=== PATIENT | male | born 1950 | race Hispanic/Latino ===

== ENCOUNTER 2021-05-24 17:22 | Inpatient (IN) | payer MEDICARE ==
[~2021-05-24] VITALS: Ht 177.8 cm; Wt 109.4 kg
[2021-05-24] MEDS ORDERED: ACETAMINOPHEN WITH CODEINE 1 TAB TAB PO ONE (18:30)
[2021-05-24] MEDS ORDERED: DEXAMETHASONE 4 MG TAB PO SCH (18:30)
[2021-05-24 18:38] LABS: ABG BASE EXCESS 0.2 mmol/L (-2.0-3.0); ABG HCO3 22.1 mmol/L (21.0-28.0); ABG PCO2 29 mmHg (35-48)
[2021-05-24 19:17] LABS: BASOPHILS % (AUTO) 0.1 % (0.0-5.0); EOSINOPHILS % (AUTO) 0.3 % (0.0-8.0); HEMATOCRIT 40.6 % (42-54); LYMPHOCYTES % (AUTO) 4.5 % (21.0-51.0); MEAN CORPUSCULAR HEMOGLOBIN 27.3 pg (27.0-33.0); MEAN CORPUSCULAR VOLUME 82.7 fL (79-99); MONOCYTES % (AUTO) 2.3 % (3.0-13.0); NEUTROPHILS % (AUTO) 92.1 % (40.0-77.0); PLATELET COUNT (AUTO) 308 K/uL (130-400); RED BLOOD CELL COUNT(AUTO) 4.91 MIL/uL (4.50-6.20); WHITE BLOOD COUNT (AUTO) 9.7 K/uL (4.8-10.8)
[2021-05-24] MEDS: ALBUTEROL INHALER 90MCG/INH IH PRN (19:22)
[2021-05-24 19:32] LABS: CREATININE 1.1 mg/dL (0.5-1.5); POTASSIUM 3.9 mmol/L (3.5-5.1)
[2021-05-24 19:35] LABS: INR 1.16 (0.85-1.15); PROTHROMBIN TIME 12.5 SEC (9.6-11.6)
[2021-05-24 19:36] LABS: PARTIAL THROMBOPLASTIN TIME 27.4 SEC (26.3-35.5)
[2021-05-24 19:38] LABS: ALBUMIN 2.3 g/dL (3.5-5.0); BILIRUBIN,TOTAL 0.7 mg/dL (0.2-1.0); TOTAL PROTEIN, SERUM 6.6 g/dL (6.0-8.3)
[2021-05-24 19:59] LABS: APPEARANCE,URINE Clear (CLEAR); BILIRUBIN,URINE Small (NEGATIVE); COLOR,URINE Dark Yellow (YELLOW); GLUCOSE, URINE (UA) Negative (NEGATIVE); KETONES,URINE Trace mg/dL (NEGATIVE); LEUKOCYTE ESTERASE ,URINE Trace (NEGATIVE); NITRATE,URINE Negative (NEGATIVE); OCCULT BLOOD,URINE Negative (NEGATIVE); PH,URINE 5.5 (5.0-8.0); PROTEIN,URINE POS 2+ mg/dL (NEGATIVE)
[2021-05-24 20:17] LABS: AMORPHOUS SEDIMENT,UR Few /LPF (None Seen); BACTERIA,URINE Few /HPF (None Seen); MUCUS,URINE Few LPF (None Seen); RBC,URINE None Seen /HPF (0-1); SQUAMOUS EPITHELIAL CELL,UR None Seen /HPF (0-2); WBC,URINE 0-1 /HPF (0-1)
[2021-05-24] MEDS ORDERED: HYDRALAZINE 20MG/ML VIAL IV PRN (20:30)
[2021-05-24] MEDS ORDERED: ZOLPIDEM TARTRATE 5 MG TAB PO PRN (20:30)
[2021-05-24] MEDS ORDERED: LACTULOSE 20 GM/30 ML UDCUP PO PRN (20:30)
[2021-05-24] MEDS ORDERED: HYDROCODONE/ACETAMINOPHEN 5/325 MG TAB PO PRN ×2 (20:30)
[2021-05-24] MEDS ORDERED: AZITHROMYCIN 250 MG TABLET PO ONE ×2 (20:30→22:18)
[2021-05-24] MEDS ORDERED: CEFTRIAXONE 1G VIAL IVP ONE (20:30)
[2021-05-24] MEDS ORDERED: DIPHENHYDRAMINE HCL 25 MG CAPSULE PO PRN (20:30)
[2021-05-24] MEDS ORDERED: ONDANSETRON 4MG INJ IV PRN (20:30)
[2021-05-24] MEDS ORDERED: ACETAMINOPHEN 325 MG TAB PO PRN (20:30)
[2021-05-24] MEDS ORDERED: ALBUTEROL 0.083% 2.5 MG/3 ML INH IH PRN (20:30)
[2021-05-24] MEDS ORDERED: NITROGLYCERIN 0.4 MG SL TAB SL PRN (20:30)
[2021-05-24] MEDS ORDERED: IOHEXOL 350 MG/ML 100ML INFUS..BTL IV ONE (22:07)
[2021-05-24] MEDS ORDERED: CEFTRIAXONE 1G VIAL ONE (22:18)
[2021-05-24] MEDS: FAMOTIDINE 20MG VIAL IV SCH (22:57)
[2021-05-24] MEDS ORDERED: ERGOCALCIFEROL (VITAMIN D2) 50,000 UNIT CAPSULE PO ONE (23:30)
[2021-05-25] MEDS ORDERED: ERGOCALCIFEROL (VITAMIN D2) 50,000 UNIT CAPSULE ONE (00:38)
[2021-05-25] MEDS: GUAIFENESIN-DM 200/20 MG 10 ML PO PRN ×2 (00:56→19:23)
[2021-05-25] MEDS: ALBUTEROL INHALER 90MCG/INH IH PRN (01:05)
[2021-05-25] MEDS ORDERED: CEFTRIAXONE 1G VIAL IVP SCH (09:00)
[2021-05-25] MEDS ORDERED: ENOXAPARIN SODIUM 40 MG/0.4 ML SYRINGE SQ SCH (09:00)
[2021-05-25] MEDS ORDERED: ENOXAPARIN SODIUM 0.5 MG/KG EACH SQ SCH (09:00)
[2021-05-25] MEDS ORDERED: 0.9%NACL 1000ML 1,000 ML IV ONE (09:25)
[2021-05-25] MEDS: AZITHROMYCIN 500MG+NS 250ML IVPB SCH (09:44)
[2021-05-25] MEDS: FAMOTIDINE 20MG VIAL IV SCH ×2 (09:44→21:00)
[2021-05-25] MEDS: ASCORBIC ACID 500 MG TAB PO SCH (09:44)
[2021-05-25] MEDS: ACETYLCYSTEINE 600 MG CAPSULE PO SCH ×2 (09:44→21:00)
[2021-05-25] MEDS: ENOXAPARIN SODIUM 60 MG/0.6 ML SQ SCH (09:44)
[2021-05-25] MEDS: ZINC SULFATE 220 CAPSULE PO SCH (09:44)
[2021-05-25 10:46] LABS: HEMOGLOBIN A1C 6.3 % (4.0-6.0)
[2021-05-25 11:00] LABS: THYROID STIMULATING HORMONE 0.3 uIU/mL (0.36-3.74)
[2021-05-25 11:08] LABS: CRP QUANTITATIVE 280.1 mg/L (0.00-9.0)
[2021-05-25] MEDS ORDERED: LOSA50TA64 PO (11:41)
[2021-05-25] MEDS ORDERED: BENZ200C53 PO (11:41)
[2021-05-25] MEDS ORDERED: VERA180T60 PO (11:41)
[2021-05-25] MEDS ORDERED: VANCOMYCIN PROTOCOL PER PHARMACY IV SCH (13:00)
[2021-05-25] MEDS ORDERED: VANCOMYCIN 1.75GM/250ML NS IV ONE ×2 (15:00)
[2021-05-25] MEDS: CEFEPIME HCL 2 GM VIAL IVP SCH (16:00)
[2021-05-25] MEDS: INSULIN HUMULIN R 100 UNIT/ML 3ML SQ SCH (19:30)
[2021-05-25] MEDS ORDERED: 0.9%NACL 100ML 100 ML ONE (22:03)
[2021-05-25] MEDS ORDERED: PHARMACY COMMUNICATION MISC SCH (22:30)
[2021-05-25] MEDS: SOLU-MEDROL 125MG VIAL IVP SCH (22:30)
[2021-05-26] MEDS: CEFEPIME HCL 2 GM VIAL IVP SCH ×2 (01:06→13:17)
[2021-05-26] MEDS: GUAIFENESIN-DM 200/20 MG 10 ML PO PRN ×2 (03:00→23:24)
[2021-05-26] MEDS ORDERED: VANCOMYCIN KIT 1 GM/250 ML IV.KIT IV SCH (06:00)
[2021-05-26 06:49] VITALS: BP 136/90
[2021-05-26] MEDS: INSULIN HUMULIN R 100 UNIT/ML 3ML SQ SCH ×5 (07:30→20:57)
[2021-05-26 07:37] LABS: HEMATOCRIT 39.8 % (42-54); MEAN CORPUSCULAR HEMOGLOBIN 27.1 pg (27.0-33.0); MEAN CORPUSCULAR HGB CONC 32.2 g/dL (32.0-36.0); MEAN CORPUSCULAR VOLUME 84.3 fL (79-99); RED BLOOD CELL COUNT(AUTO) 4.72 MIL/uL (4.50-6.20); RED CELL DISTRIBUTION WIDTH 14.4 % (11.0-15.5); WHITE BLOOD COUNT (AUTO) 11.9 K/uL (4.8-10.8)
[2021-05-26 07:55] LABS: ALBUMIN 2.1 g/dL (3.5-5.0); BILIRUBIN,TOTAL 0.5 mg/dL (0.2-1.0); CREATININE 0.9 mg/dL (0.5-1.5); POTASSIUM 4.1 mmol/L (3.5-5.1); TOTAL PROTEIN, SERUM 6.3 g/dL (6.0-8.3)
[2021-05-26] MEDS: SOLU-MEDROL 125MG VIAL IVP SCH ×3 (08:01→22:33)
[2021-05-26] MEDS: AZITHROMYCIN 500MG+NS 250ML IVPB SCH (08:02)
[2021-05-26] MEDS: ACETYLCYSTEINE 600 MG CAPSULE PO SCH ×2 (08:02→20:56)
[2021-05-26] MEDS: ENOXAPARIN SODIUM 60 MG/0.6 ML SQ SCH (08:02)
[2021-05-26] MEDS: FAMOTIDINE 20MG VIAL IV SCH ×2 (08:03→20:55)
[2021-05-26] MEDS: ZINC SULFATE 220 CAPSULE PO SCH (08:03)
[2021-05-26] MEDS: ASCORBIC ACID 500 MG TAB PO SCH (08:03)
[2021-05-26] MEDS: VERAPAMIL HCL 180 MG PO SCH (08:42)
[2021-05-26 11:25] VITALS: BP 109/68
[2021-05-26] MEDS ORDERED: ALBUTEROL INHALER 90MCG/INH IH PRN (13:30)
[2021-05-26] MEDS ORDERED: PHARMACY COMMUNICATION MISC SCH (14:00)
[2021-05-26] MEDS ORDERED: COMPOUND IV REFRIGERATED 1 EACH IVSOLN MISC PRN (15:00)
[2021-05-26] MEDS ORDERED: REMDESIVIR (EUA) 520 200 MG in 0.9% NACL 250ML 250 ML IV ONE (15:00)
[2021-05-26 15:10] VITALS: BP 112/72
[2021-05-26 19:55] VITALS: BP 120/73
[2021-05-26 23:43] VITALS: BP 145/94
[2021-05-27] MEDS: CEFEPIME HCL 2 GM VIAL IVP SCH ×2 (01:38→13:42)
[2021-05-27 04:00] VITALS: BP 144/78
[2021-05-27] MEDS: REMDESIVIR LABS MISC SCH (04:37)
[2021-05-27] MEDS: BENZONATATE 100 MG CAPSULE PO PRN (05:29)
[2021-05-27 06:01] LABS: BASOPHILS % (AUTO) 0.1 % (0.0-5.0); HEMATOCRIT 37.9 % (42-54); LYMPHOCYTES % (AUTO) 3.3 % (21.0-51.0); MEAN CORPUSCULAR HEMOGLOBIN 27.1 pg (27.0-33.0); MEAN CORPUSCULAR HGB CONC 31.9 g/dL (32.0-36.0); MONOCYTES % (AUTO) 1.5 % (3.0-13.0); NEUTROPHILS % (AUTO) 94.3 % (40.0-77.0); PLATELET COUNT (AUTO) 325 K/uL (130-400); RED BLOOD CELL COUNT(AUTO) 4.46 MIL/uL (4.50-6.20); RED CELL DISTRIBUTION WIDTH 14.5 % (11.0-15.5); WHITE BLOOD COUNT (AUTO) 11.8 K/uL (4.8-10.8)
[2021-05-27 06:18] LABS: ALBUMIN 2.1 g/dL (3.5-5.0); BILIRUBIN,TOTAL 0.4 mg/dL (0.2-1.0); CREATININE 0.9 mg/dL (0.5-1.5); CRP QUANTITATIVE 118.5 mg/L (0.00-9.0); TOTAL PROTEIN, SERUM 6.1 g/dL (6.0-8.3)
[2021-05-27] MEDS: SOLU-MEDROL 125MG VIAL IVP SCH ×3 (06:27→23:01)
[2021-05-27] MEDS: INSULIN HUMULIN R 100 UNIT/ML 3ML SQ SCH ×4 (06:46→21:00)
[2021-05-27 08:00] VITALS: BP 141/84
[2021-05-27] MEDS: FAMOTIDINE 20MG VIAL IV SCH ×2 (08:53→21:05)
[2021-05-27] MEDS: ASCORBIC ACID 500 MG TAB PO SCH (08:53)
[2021-05-27] MEDS: ACETYLCYSTEINE 600 MG CAPSULE PO SCH ×2 (08:53→21:05)
[2021-05-27] MEDS: AZITHROMYCIN 500MG+NS 250ML IVPB SCH (08:53)
[2021-05-27] MEDS: ZINC SULFATE 220 CAPSULE PO SCH (08:53)
[2021-05-27] MEDS: ENOXAPARIN SODIUM 60 MG/0.6 ML SQ SCH (08:54)
[2021-05-27] MEDS: VERAPAMIL HCL 180 MG PO SCH (08:58)
[2021-05-27 12:00] VITALS: BP 138/90
[2021-05-27] MEDS ORDERED: REMDESIVIR (EUA) 520 100 MG in 0.9% NACL 250ML 250 ML IV SCH (15:00)
[2021-05-27] MEDS: GUAIFENESIN-DM 200/20 MG 10 ML PO PRN ×2 (15:37→21:05)
[2021-05-27 16:00] VITALS: BP 145/93
[2021-05-27 20:00] VITALS: BP 144/83
[2021-05-28] VITALS: BP 146/88
[2021-05-28] MEDS: CEFEPIME HCL 2 GM VIAL IVP SCH ×2 (00:02→13:48)
[2021-05-28] MEDS: BENZONATATE 100 MG CAPSULE PO PRN (00:30)
[2021-05-28 04:00] VITALS: BP 146/81
[2021-05-28] MEDS: GUAIFENESIN-DM 200/20 MG 10 ML PO PRN ×2 (04:58→13:48)
[2021-05-28] MEDS: REMDESIVIR LABS MISC SCH (05:12)
[2021-05-28] MEDS: SOLU-MEDROL 125MG VIAL IVP SCH ×3 (06:48→20:47)
[2021-05-28] MEDS: INSULIN HUMULIN R 100 UNIT/ML 3ML SQ SCH ×4 (07:27→21:00)
[2021-05-28 08:04] VITALS: BP 144/84
[2021-05-28] MEDS: FAMOTIDINE 20MG VIAL IV SCH ×2 (08:23→20:47)
[2021-05-28] MEDS: ENOXAPARIN SODIUM 60 MG/0.6 ML SQ SCH (08:24)
[2021-05-28] MEDS: ACETYLCYSTEINE 600 MG CAPSULE PO SCH ×2 (08:24→20:48)
[2021-05-28] MEDS: ASCORBIC ACID 500 MG TAB PO SCH (08:24)
[2021-05-28] MEDS: ZINC SULFATE 220 CAPSULE PO SCH (08:24)
[2021-05-28] MEDS: AZITHROMYCIN 500MG+NS 250ML IVPB SCH (08:25)
[2021-05-28] MEDS: VERAPAMIL HCL 180 MG PO SCH (08:25)
[2021-05-28 11:42] VITALS: BP 128/88
[2021-05-28 15:46] VITALS: BP 146/62
[2021-05-28 20:00] VITALS: BP 146/78
[2021-05-29] VITALS: BP 158/88
[2021-05-29] MEDS: CEFEPIME HCL 2 GM VIAL IVP SCH ×3 (01:26→23:31)
[2021-05-29 04:00] VITALS: BP 141/77
[2021-05-29 04:27] LABS: BASOPHILS % (AUTO) 0.1 % (0.0-5.0); HEMATOCRIT 40.6 % (42-54); LYMPHOCYTES % (AUTO) 3.2 % (21.0-51.0); MEAN CORPUSCULAR HEMOGLOBIN 26.2 pg (27.0-33.0); MEAN CORPUSCULAR VOLUME 84.4 fL (79-99); MONOCYTES % (AUTO) 1.4 % (3.0-13.0); NEUTROPHILS % (AUTO) 94.4 % (40.0-77.0); PLATELET COUNT (AUTO) 348 K/uL (130-400); RED BLOOD CELL COUNT(AUTO) 4.81 MIL/uL (4.50-6.20); RED CELL DISTRIBUTION WIDTH 14.4 % (11.0-15.5); WHITE BLOOD COUNT (AUTO) 12.3 K/uL (4.8-10.8)
[2021-05-29 04:43] LABS: ALBUMIN 2.3 g/dL (3.5-5.0); BILIRUBIN,TOTAL 0.5 mg/dL (0.2-1.0); CREATININE 0.9 mg/dL (0.5-1.5); CRP QUANTITATIVE 53.4 mg/L (0.00-9.0); POTASSIUM 4.1 mmol/L (3.5-5.1)
[2021-05-29] MEDS: REMDESIVIR LABS MISC SCH (06:07)
[2021-05-29] MEDS: SOLU-MEDROL 125MG VIAL IVP SCH ×3 (06:10→23:31)
[2021-05-29 06:23] LABS: ERYTHROCYTE SEDIMENTATION RATE 65 MM/HR (0-20)
[2021-05-29] MEDS: INSULIN HUMULIN R 100 UNIT/ML 3ML SQ SCH ×4 (06:43→21:00)
[2021-05-29 08:00] VITALS: BP 148/94
[2021-05-29] MEDS: VERAPAMIL HCL 180 MG PO SCH (08:00)
[2021-05-29] MEDS: AZITHROMYCIN 500MG+NS 250ML IVPB SCH (08:07)
[2021-05-29] MEDS: FAMOTIDINE 20MG VIAL IV SCH ×2 (08:07→20:20)
[2021-05-29] MEDS: ZINC SULFATE 220 CAPSULE PO SCH (08:08)
[2021-05-29] MEDS: ENOXAPARIN SODIUM 60 MG/0.6 ML SQ SCH ×3 (08:08→20:22)
[2021-05-29] MEDS: ACETYLCYSTEINE 600 MG CAPSULE PO SCH ×2 (08:08→20:21)
[2021-05-29] MEDS: ASCORBIC ACID 500 MG TAB PO SCH (08:08)
[2021-05-29] MEDS ORDERED: PHARMACY COMMUNICATION MISC SCH (08:30)
[2021-05-29] MEDS ORDERED: LABETALOL 20MG VIAL IV PRN (08:30)
[2021-05-29] MEDS: LOSARTAN 25 MG TABLET PO SCH (09:20)
[2021-05-29] MEDS: BISACODYL 5 MG TABLET.DR PO SCH ×2 (09:20→20:21)
[2021-05-29 12:00] VITALS: BP 136/85
[2021-05-29] MEDS: BARICITINIB (EUA) 2 MG TABLET PO SCH (13:23)
[2021-05-29 17:27] VITALS: BP 133/73
[2021-05-29 20:00] VITALS: BP 134/76
[2021-05-30] VITALS: BP 142/84
[2021-05-30 04:00] VITALS: BP 142/80
[2021-05-30 04:12] LABS: BASOPHILS % (AUTO) 0.2 % (0.0-5.0); HEMATOCRIT 42.5 % (42-54); LYMPHOCYTES % (AUTO) 4.3 % (21.0-51.0); MEAN CORPUSCULAR HEMOGLOBIN 27.4 pg (27.0-33.0); MEAN CORPUSCULAR HGB CONC 31.5 g/dL (32.0-36.0); MEAN CORPUSCULAR VOLUME 86.9 fL (79-99); MONOCYTES % (AUTO) 1.9 % (3.0-13.0); NEUTROPHILS % (AUTO) 92.8 % (40.0-77.0); PLATELET COUNT (AUTO) 365 K/uL (130-400); RED BLOOD CELL COUNT(AUTO) 4.89 MIL/uL (4.50-6.20); RED CELL DISTRIBUTION WIDTH 14.3 % (11.0-15.5)
[2021-05-30 04:32] LABS: ALBUMIN 2.4 g/dL (3.5-5.0); BILIRUBIN,TOTAL 0.5 mg/dL (0.2-1.0); CREATININE 0.8 mg/dL (0.5-1.5); CRP QUANTITATIVE 34.4 mg/L (0.00-9.0); POTASSIUM 4.2 mmol/L (3.5-5.1); TOTAL PROTEIN, SERUM 6.5 g/dL (6.0-8.3)
[2021-05-30 06:05] LABS: ERYTHROCYTE SEDIMENTATION RATE 25 MM/HR (0-20)
[2021-05-30] MEDS: REMDESIVIR LABS MISC SCH (06:27)
[2021-05-30] MEDS: SOLU-MEDROL 125MG VIAL IVP SCH ×3 (06:38→20:37)
[2021-05-30] MEDS: INSULIN HUMULIN R 100 UNIT/ML 3ML SQ SCH ×4 (07:30→20:42)
[2021-05-30 08:00] VITALS: BP 136/95
[2021-05-30] MEDS: AZITHROMYCIN 500MG+NS 250ML IVPB SCH (08:56)
[2021-05-30] MEDS: ACETYLCYSTEINE 600 MG CAPSULE PO SCH ×2 (08:57→20:39)
[2021-05-30] MEDS: ENOXAPARIN SODIUM 60 MG/0.6 ML SQ SCH ×2 (08:57→20:38)
[2021-05-30] MEDS: LOSARTAN 25 MG TABLET PO SCH (08:57)
[2021-05-30] MEDS: ZINC SULFATE 220 CAPSULE PO SCH (08:57)
[2021-05-30] MEDS: BISACODYL 5 MG TABLET.DR PO SCH ×2 (08:57→20:39)
[2021-05-30] MEDS: FAMOTIDINE 20MG VIAL IV SCH (08:58)
[2021-05-30] MEDS: ASCORBIC ACID 500 MG TAB PO SCH (08:58)
[2021-05-30] MEDS: VERAPAMIL HCL 180 MG PO SCH (09:00)
[2021-05-30] MEDS ORDERED: FAMOTIDINE 20MG TAB PO SCH (09:30)
[2021-05-30] MEDS: BARICITINIB (EUA) 2 MG TABLET PO SCH (09:48)
[2021-05-30] MEDS: CEFEPIME HCL 2 GM VIAL IVP SCH (12:07)
[2021-05-30 12:13] VITALS: BP 112/61
[2021-05-30 16:00] VITALS: BP 142/86
[2021-05-30 20:00] VITALS: BP 142/84
[2021-05-30] MEDS: FAMOTIDINE 20MG TAB PO SCH (20:38)
[2021-05-31 00:11] VITALS: BP 136/89
[2021-05-31] MEDS: CEFEPIME HCL 2 GM VIAL IVP SCH ×2 (00:34→13:13)
[2021-05-31 03:48] LABS: BASOPHILS % (AUTO) 0.1 % (0.0-5.0); HEMATOCRIT 39.5 % (42-54); LYMPHOCYTES % (AUTO) 2.8 % (21.0-51.0); MEAN CORPUSCULAR HEMOGLOBIN 26.5 pg (27.0-33.0); MEAN CORPUSCULAR HGB CONC 31.1 g/dL (32.0-36.0); MEAN CORPUSCULAR VOLUME 85.1 fL (79-99); MONOCYTES % (AUTO) 1.4 % (3.0-13.0); NEUTROPHILS % (AUTO) 94.9 % (40.0-77.0); PLATELET COUNT (AUTO) 300 K/uL (130-400); RED BLOOD CELL COUNT(AUTO) 4.64 MIL/uL (4.50-6.20); RED CELL DISTRIBUTION WIDTH 14.2 % (11.0-15.5); WHITE BLOOD COUNT (AUTO) 10.7 K/uL (4.8-10.8)
[2021-05-31 03:58] LABS: ALBUMIN 2.1 g/dL (3.5-5.0); BILIRUBIN,TOTAL 0.5 mg/dL (0.2-1.0); CREATININE 0.9 mg/dL (0.5-1.5); CRP QUANTITATIVE 21.7 mg/L (0.00-9.0); POTASSIUM 4.2 mmol/L (3.5-5.1); TOTAL PROTEIN, SERUM 5.4 g/dL (6.0-8.3)
[2021-05-31 04:34] VITALS: BP 141/88
[2021-05-31] MEDS: SOLU-MEDROL 125MG VIAL IVP SCH ×3 (06:33→21:20)
[2021-05-31] MEDS: INSULIN HUMULIN R 100 UNIT/ML 3ML SQ SCH ×4 (06:33→21:08)
[2021-05-31] MEDS: ENOXAPARIN SODIUM 60 MG/0.6 ML SQ SCH ×2 (07:47→21:06)
[2021-05-31] MEDS: ZINC SULFATE 220 CAPSULE PO SCH (07:47)
[2021-05-31] MEDS: ACETYLCYSTEINE 600 MG CAPSULE PO SCH ×2 (07:48→21:05)
[2021-05-31] MEDS: BISACODYL 5 MG TABLET.DR PO SCH ×2 (07:48→19:18)
[2021-05-31] MEDS: ASCORBIC ACID 500 MG TAB PO SCH (07:48)
[2021-05-31] MEDS: LOSARTAN 25 MG TABLET PO SCH (07:48)
[2021-05-31] MEDS: FAMOTIDINE 20MG TAB PO SCH ×2 (07:48→21:05)
[2021-05-31] MEDS: VERAPAMIL HCL 180 MG PO SCH (07:49)
[2021-05-31] MEDS: BARICITINIB (EUA) 2 MG TABLET PO SCH (07:49)
[2021-05-31 08:08] VITALS: BP 139/94
[2021-05-31 12:00] VITALS: BP 133/85
[2021-05-31 15:57] VITALS: BP 137/87
[2021-05-31 19:29] VITALS: BP 114/85
[2021-06-01] VITALS (7 sets, daily range): BP systolic 114–164; BP diastolic 77–102
[2021-06-01] MEDS: CEFEPIME HCL 2 GM VIAL IVP SCH (00:29)
[2021-06-01] MEDS: INSULIN HUMULIN R 100 UNIT/ML 3ML SQ SCH ×4 (05:54→21:30)
[2021-06-01] MEDS: SOLU-MEDROL 125MG VIAL IVP SCH ×3 (05:54→21:28)
[2021-06-01 08:15] LABS: HEMATOCRIT 44.7 % (42-54); MEAN CORPUSCULAR HEMOGLOBIN 26.9 pg (27.0-33.0); MEAN CORPUSCULAR HGB CONC 31.3 g/dL (32.0-36.0); MEAN CORPUSCULAR VOLUME 85.8 fL (79-99); RED BLOOD CELL COUNT(AUTO) 5.21 MIL/uL (4.50-6.20); RED CELL DISTRIBUTION WIDTH 14.4 % (11.0-15.5); WHITE BLOOD COUNT (AUTO) 14.2 K/uL (4.8-10.8)
[2021-06-01 08:27] LABS: CREATININE 0.8 mg/dL (0.5-1.5); CRP QUANTITATIVE 10.9 mg/L (0.00-9.0); POTASSIUM 4.2 mmol/L (3.5-5.1)
[2021-06-01] MEDS ORDERED: CEFEPIME HCL 2 GM VIAL IVP SCH (09:00)
[2021-06-01] MEDS: ACETYLCYSTEINE 600 MG CAPSULE PO SCH ×2 (09:13→21:28)
[2021-06-01] MEDS: ASCORBIC ACID 500 MG TAB PO SCH (09:13)
[2021-06-01] MEDS: BISACODYL 5 MG TABLET.DR PO SCH ×2 (09:13→21:28)
[2021-06-01] MEDS: LOSARTAN 25 MG TABLET PO SCH (09:13)
[2021-06-01] MEDS: ZINC SULFATE 220 CAPSULE PO SCH (09:13)
[2021-06-01] MEDS: BARICITINIB (EUA) 2 MG TABLET PO SCH (09:13)
[2021-06-01] MEDS: ENOXAPARIN SODIUM 60 MG/0.6 ML SQ SCH ×2 (09:15→21:28)
[2021-06-01] MEDS: FAMOTIDINE 20MG TAB PO SCH ×2 (09:16→21:28)
[2021-06-01] MEDS: VERAPAMIL HCL 180 MG PO SCH (09:22)
== END 2021-06-01 23:35 | DRG 177 ==
LOC: EDH 17:22 → EDHIP 20:28 → 2AH 05-26 06:34 → 2DH 05-30 13:16
PROVIDERS: ADMIT Internal Medicine; ATTEND Internal Medicine
PROC: XW033E5 Introduction of Remdesivir Anti-infective into Peripheral Vein, Percutaneous Approach, New Technology Group 5 (ICD-10-PCS; principal; 2021-05-26)
PROC: 5A0955A Assistance with Respiratory Ventilation, Greater than 96 Consecutive Hours, High Flow/Velocity Cannula (ICD-10-PCS; 2021-05-26)
PROC: XW0DXM6 Introduction of Baricitinib into Mouth and Pharynx, External Approach, New Technology Group 6 (ICD-10-PCS; 2021-05-29)
DX: U07.1 COVID-19 (principal); J12.82 Pneumonia due to coronavirus disease 2019; J96.01 Acute respiratory failure with hypoxia; D68.69 Other thrombophilia; E66.9 Obesity, unspecified; K59.00 Constipation, unspecified; K76.0 Fatty (change of) liver, not elsewhere classified; I11.9 Hypertensive heart disease without heart failure; N28.1 Cyst of kidney, acquired; Z68.35 Body mass index [BMI] 35.0-35.9, adult; Z83.3 Family history of diabetes mellitus; Z80.9 Family history of malignant neoplasm, unspecified
CPT/HCPCS: 36415; 36600; 71045; 71275; 76705; 80048; 80053; 80202; 81001; 82550; 82728; 82803; 82948; 83036; 83605; 83615; 83880; 84145; 84443; 84484; 85025; 85027; 85378; 85610; 85651; 85730; 86140; 87040; 87071; 87088; 87205; 87449; 87486; 87581; 87633; 87635; 87798; 87804; 93005; 93306; 93356; 93970; C9803; G0378; J0456; J0692; J0696; J1650; J1815; J2930; J3370; J3490; J7030; J7050; J8540; Q9967